=== PATIENT | male | born 1935 | race Caucasian/White ===

== ENCOUNTER 2017-10-08 08:19 | Day surgery (SDC) | payer MEDICARE, BC ==
[~2017-10-08] VITALS: Ht 180.3 cm; Wt 91.6 kg
--- NOTE | ~2017-10-08 | OP ---
PATIENT NAME: AALIYAH HUERTA MEDICAL RECORD: [id number] :33 LOCATION:[facility] ADMISSION DATE: SURGEON: ERWIN ARGUETA MD DATE OF OPERATION: 10/08/2017 PREOPERATIVE DIAGNOSIS: Extensive perianal warts. PROCEDURE: Fulguration of perianal warts. SURGEON: Erwin Argueta MD OVERHAULER HELPER: None. BLOOD LOSS: Minimal. ANESTHESIA: General. COMPLICATIONS: None. The risks, possible complications, and alternatives to procedure were explained to the patient. He elects to proceed. OPERATIVE COURSE: The patient was conveyed to the operating room electively on 10/08/2017. General anesthesia was induced by the anesthesia staff. The patient was placed in the lithotomy position. A suction device was used as I fulgurated the perianal warts with the electrocautery. The U-shaped anal retractors were placed within the anus. I examined the anus very carefully. I noted no verrucous growths within the anus or the lower rectum. I continued to fulgurate and then wiped away the verrucous growths around the anus. A portion of the largest one was sent to pathology. Once I had fulgurated all of the warts, I injected the perianal tissues with a combination of steroid preparation and Marcaine. Gelfoam was applied within the anus and lower rectum. A topical anesthetic cream was applied to the perianal skin. The patient was then extubated and conveyed to post-anesthesia care unit. He will be dismissed home on [place] as well as [place]. I will see him in the office in 2-3 weeks. TRANSINT:[id number] Voice Confirmation ID: [id number] DOCUMENT ID: [id number] ERWIN ARGUETA MD at 1507 CC: [id number] DICTATION DATE: 10/08/17 1314 GRANT WRITER: 10/08/17 1529 [facility] 10/08/17 [place] [id number]
[2017-10-08 09:13] LABS: BASOPHILS 0.2 % (0-2); EOSINOPHILS 3.8 % (0-7); HEMATOCRIT 44.1 % (42.0-54.0); HEMOGLOBIN 15.2 g/dL (13.5-17.5); IMMATURE GRANULOCYTES 0.2 % (0-5); LYMPHOCYTES 27.4 % (15-50); MCH 33.1 pg (26.0-34.0); MCHC 34.5 g/dL (31.0-37.0); MCV 96.1 fL (80.0-100.0); MEAN PLATELET VOLUME 8.8 fL (7.4-10.4); MONOCYTES 8.4 % (2-11); PLATELET COUNT 202 10x3/uL (130-400); RBC 4.59 10x6/uL (4.20-6.10); RDW 13.2 % (11.5-14.5); WBC 5.8 10x3/uL (4.8-10.8)
[2017-10-08 09:21] LABS: CALC OSMOLALITY 280 mosm/kg (275-300); CALCIUM 8.7 mg/dL (8.5-10.1); CARBON DIOXIDE 26.1 mmol/L (21.0-32.0); CHLORIDE - SERUM 106 mmol/L (98-107); CREATININE - SERUM 0.9 mg/dL (0.6-1.3); GLUCOSE 104 mg/dL (74-106); POTASSIUM - SERUM 4.1 mmol/L (3.5-5.1); SODIUM 141 mmol/L (136-145); UREA NITROGEN 12 mg/dL (7-18); eGFR NON AFRICAN AMERICAN 86 mL/min (90-120)
[2017-10-08 10:12] VITALS: BP 152/86; Ht 180.3 cm; Wt 91.6 kg
== END 2017-10-08 14:30 | disposition home or self-care (01) ==
LOC: D.OPS 08:19 → D.PAN 14:05 → D.OPS 14:30 → D.PAN 10-10 08:00 → D.OPS 10-10 08:00
PROVIDERS: Anesthesiology
DX: A63.0 Anogenital (venereal) warts (principal); Z01.812 Encounter for preprocedural laboratory examination

== ENCOUNTER 2018-06-29 15:06 | Inpatient (IN) | payer MEDICARE, BC ==
[~2018-06-29] VITALS: Ht 180.3 cm; Wt 91.8 kg
[2018-06-29 16:00] VITALS: BP 133/80
[2018-06-29 16:47] LABS: BASOPHILS 0.7 % (0-2); EOSINOPHILS 8.4 % (0-7); HEMATOCRIT 38.8 % (42.0-54.0); HEMOGLOBIN 13.2 g/dL (13.5-17.5); IMMATURE GRANULOCYTES 0.4 % (0-5); LYMPHOCYTES 27.5 % (15-50); MCH 32.6 pg (26.0-34.0); MCV 95.8 fL (80.0-100.0); MEAN PLATELET VOLUME 8.5 fL (7.4-10.4); MONOCYTES 8.5 % (2-11); NEUTROPHILS 54.5 % (40-80); PLATELET COUNT 214 10x3/uL (130-400); RBC 4.05 10x6/uL (4.20-6.10); WBC 7.2 10x3/uL (4.8-10.8)
[2018-06-29 17:00] LABS: INR 1.13 (0.85-1.17)
[2018-06-29 17:03] VITALS: Ht 180.3 cm; Wt 91.8 kg
[2018-06-29 17:04] LABS: ALBUMIN 3.2 g/dL (3.4-5.0); ANION GAP 14.5 mmol/L (8-16); BILIRUBIN - TOTAL 0.71 mg/dL (0.2-1.3); CALCIUM 7.9 mg/dL (8.5-10.1); CARBON DIOXIDE 24.7 mmol/L (21.0-32.0); CREATININE - SERUM 1.2 mg/dL (0.6-1.3); POTASSIUM - SERUM 4.2 mmol/L (3.5-5.1); PROTEIN - SERUM 7.2 g/dL (6.4-8.2)
[2018-06-29 17:09] LABS: D-DIMER-QUANTITATIVE 8.62 ug/mLFEU (0.20-0.54)
[2018-06-29 21:03] VITALS: BP 145/79
[2018-06-30 00:01] VITALS: BP 148/88
[2018-06-30 04:50] VITALS: BP 133/78
--- NOTE | 2018-06-30 07:15 | NUR ---
MORNING ASSESSMENT COMPLETE. PT LYING IN BED AAO X4 TO PERSON, PLACE, TIME AND SITUATION. FRIEND AT BEDSIDE. RUL PE NOTED. R GROIN AREA DVT. ON 100MG LOVENOX BID. DENIES FURTHER NEEDS AT THIS TIME. CL IN REACH
[2018-06-30 08:00] VITALS: BP 106/80
--- NOTE | 2018-06-30 08:07 | NUR ---
D Dimer elavated at 8.[address] ANGIOGRAM per orders resited a new IV by staff. Dr. Guzman in this shift to check on pt. ask about lovonox order for 1mg per kg pt. wt . 99.9 bstated to give 100mg. given per order. result of CT ANGIOGRAM in with right upper lob P.E. called to Dr. Guzman at 0116, with no new orders given. results on chart. resting with no s/s of distress call light in reach.
[2018-06-30 12:30] VITALS: BP 140/73
[2018-06-30 16:00] VITALS: BP 148/83
[2018-06-30 21:26] VITALS: BP 139/85
[2018-07-01 06:13] VITALS: BP 150/85
[2018-07-01 09:13] VITALS: BP 138/87
--- NOTE | 2018-07-01 09:40 | NUR ---
ASSESSMENT COMPLETE, VS STABLE. NO COMPLAINTS OR SIGNS OF DISTRESS. CALL LIGHT WITHIN REACH.
--- NOTE | 2018-07-01 12:15 | NUR ---
PATIENT SITTING UP EATING AT THIS TIME WITH NO COMPLAINTS OR SIGNS OF DISTRESS. IV INTACT. CALL LIGHT WITHIN REACH.
--- NOTE | 2018-07-01 15:00 | NUR ---
PATIENT IN BED WITH NO COMPLAINTS AT THIS TIME. IV INTACT X 2 CALL LIGHT WITHIN REACH.
[2018-07-01 15:16] VITALS: BP 145/56
--- NOTE | 2018-07-01 16:48 | NUR ---
PATIENT IN BED WITH NO COMPLAINTS OR SIGNS OF DISTRESS. IV INTACT X 2. SALINE LOCKED. CALL LIGHT WITHIN REACH.
--- NOTE | 2018-07-01 17:36 | HP ---
PATIENT: AALIYAH HUERTA MEDICAL RECORD: [id number] ACCOUNT: [id number] LOCATION:[facility] [place] : 33 ADMISSION DATE: 06/29/18 PCP: ELLEN GALLEGOS MD HISTORY AND PHYSICAL EXAMINATION DATE OF ADMISSION: 06/29/2018 CHIEF COMPLAINT: Pain and swelling in the right lower extremity. HISTORY: This is an 82-year-old male, who presented to my office today with pain and swelling to the right lower extremity for several days. He denies any trauma. No shortness of breath. He has not had any major surgeries recently. He does not smoke. He has no personal history or family history of blood clots. He was sent over to [facility] for an outpatient Venous Doppler ultrasound of the right lower extremity and I received a phone call from the radiologist stating that he has extensive blood clot and blood clot started at the superficial vein down through the popliteal vein. I spoke to the patient on the phone and as he was still in the hospital, I had him sent down to admissions to be admitted for right lower extremity DVT. PAST MEDICAL AND SURGICAL HISTORY: He has had some arthritis and has had a partial knee replacement. HOME MEDICATIONS: He takes no regular medicines. DRUG ALLERGIES: None. HABITS: He never smoked. He denies any alcohol or drug use. SOCIAL HISTORY: He is a retired teacher and personal coach. He is . FAMILY HISTORY: Father at 90 of old age. Mother at 28 due to tuberculosis. REVIEW OF SYSTEMS: GENERAL: No major weight changes. HEENT: No particular sinus or allergy problems. RESPIRATORY: No history of emphysema or asthma. He denies any cough or hemoptysis. CARDIAC: No history of heart trouble. GASTROINTESTINAL: No significant heartburn. No diarrhea or constipation. GENITOURINARY: No significant problems there. MUSCULOSKELETAL: Has few joint aches and pains. He has had a partial knee replacement. NEUROLOGIC: No migraines or seizures. PSYCHIATRIC: Denies depression or melancholia. PHYSICAL EXAMINATION: VITAL SIGNS: Temperature 98.6, pulse 78, respirations 16, blood pressure 133/80. GENERAL: He does not appear to be in acute distress. He is awake and alert. HEENT: Grossly within normal limits. NECK: Supple. No JVD or bruit. HEART: Regular rate and rhythm without murmur. LUNGS: Clear. HISTORY AND PHYSICAL [id number] AALIYAH HUERTA ABDOMEN: Soft, flat, nontender. EXTREMITIES: The left lower extremity has no edema. Right lower extremity has generalized swelling from around the knee down to the ankle. Homans' sign is negative. He feels most tenderness behind the knee. LABORATORY DATA: CBC with a white count of 7200, hemoglobin 13.2, platelets number 214,000. Basic metabolic panel is normal. INR 1.13. D-dimer 8.62. Liver functions are okay. ASSESSMENT: Right lower extremity DVT. PLAN: We will admit. Start Lovenox. We will get CT angiogram of the chest with PE protocol. We will workup for hypercoagulable state. Other tests or procedures as warranted. TRANSINT:[id number] Voice Confirmation ID: [id number] DOCUMENT ID: [id number] ELLEN GALLEGOS MD at 1736 CC: [id number] DICTATION DATE: 06/30/18917 ELECTRONIC MAINTENANCE SUPERVISOR: 06/30/18 0941 ADM IN [facility] [address] [id number]
[2018-07-01 17:52] VITALS: BP 131/85
--- NOTE | 2018-07-01 18:40 | NUR ---
PATIENT STATED PHYSICIAN SAYS GOING TO DC IN AM. NO COMPLAINTS OR SIGNS OF DISTRESS. IV X 2 INTACT. CALL LIGHT WITHIN REACH.
--- NOTE | 2018-07-01 20:00 | NUR ---
ALERT RESTING IN BED REPORTS GOING HOME IN AM, DENIES PAIN CALL LIGHT IN REACH NO NEEDS VOICED AT THIS TIME
[2018-07-01] MEDS ORDERED: ELIQUIS5 MG PO (21:43)
[2018-07-01 22:19] VITALS: BP 139/81
[2018-07-02 08:44] VITALS: BP 135/85
--- NOTE | 2018-07-02 09:20 | MORECARE ---
CASE MANAGEMENT DISCHARGE SUMMARY PATIENT: AALIYAH HUERTA UNIT: [id number] ADM DATE: 06/29/18 AGE: 82 : 34 SEX: M ROOM/BED: D.2204 AUTHOR: ANABEL,DOC PHYSICIAN: REFERRING PHYSICIAN: ELLEN GALLEGOS MD DATE OF SERVICE: 07/02/18 Discharge Plan Patient Name: AALIYAH HUERTA Facility: [facility]:[place] : 1935 Planned Disposition: Home Anticipated Discharge Date: Discharge Date: Expected LOS: Initial Reviewer: [email or web address] Initial Review Date: 06/29/2018 Generated: 07/02/18 10:20 am Comments DCP- Discharge Planning Updated by [email or web address]: Marisabel Rico on 07/02/18 8:[address] Patient Name: AALIYAH HUERTA Admission Status: Elective Accout number: [id number] Admission Date: 06-29-2018 : 1935 Admission Diagnosis:OTHER SPECIFIED SOFT TISSUE DISORDERS Attending: ELLEN GALLEGOS Current LOS: 3 Anticipated DC Date: Planned Disposition: Home Primary Insurance: MEDICARE A & B Discharge Planning Comments: CM MET WITH PATIENT TO ASSESS DISCHARGE PLANNING NEEDS. PATIENT LIVES INDEPENDENTLY AT HOME WHERE HE PLANS TO RETURN. HE DOES NOT USE ANY DME, STATES HIS HOME IS SAFE AND HIS FRIEND GORAN WILL BE HIS VISUAL BASIC PROGRAMMER HOME. HE DENIES ANY NEEDS. AT THIS TIME. IMM EXPLAINED AND SIGNED AND PLACED IN CHART. CM WILL CONTINUE TO FOLLOW AND ASSIST NEEDED White Hat Hacker: Marisabel Rico DCPIA - Discharge Planning Initial Assessment Updated by [email or web address]: Marisabel Rico on 07/02/18 9:16 am * Is the patient Alert and Oriented? Yes * How many steps to enter\exit or inside your home? * PCP ROSY * [facility]acy [facility] * Preadmission Environment Home Alone * ADLs Independent * Equipment None * List name and contact numbers for known caregivers / representatives who currently or will assist patient after discharge: GORAN JILL * Verbal permission to speak to the caregivers and representatives has been obtained from the patient. Yes * Community resources currently utilized None * Additional services required to return to the preadmission environment? No * Can the patient safely return to the preadmission environment? Yes * Has this patient been hospitalized within the prior 30 days at any hospital? No Coverage Notice Reviewer: [id number] Candida Rico Notice Issued Date-Time: 07/02/2018 9:00 Notice Type: IM Discharge Notice Notice Delivered To: Patient Relationship to Patient: Billet Heater Name: Delivery Method: HAND - Hand Delivered Dottie Days: Prior Verbal Notification: Recipient Understood Notice: Yes Recipient Signature: Yes Med Rec Note Co-signed by Attending: Coverage Notice Comment: Patient Name: AALIYAH HUERTA Page [phone] at 0920 All edits/amendments must be made on the electronic document DICTATION DATE: 07/02/18918 CANE STRIPPER: RICHARD 07/02/18918 RPT#: [id number] DC DATE: STATUS: ADM IN [facility] [address] [place] [address] END OF REPORT
--- NOTE | 2018-07-02 10:43 | NUR ---
IV IN RIGHT AND LEFT FOREARMS REMOVED WITH TIP INTACT. DISCHARGE INSTRUCTIONS GIVEN AND VERBALIZED UNDERSTANDING. GETTING READY TO LEAVE
--- NOTE | 2018-07-03 16:55 | MORECARE ---
CASE MANAGEMENT DISCHARGE SUMMARY PATIENT: AALIYAH HUERTA UNIT: [id number] ADM DATE: 06/29/18 AGE: 82 : 34 SEX: M ROOM/BED: D.2204 AUTHOR: ANABELDOC PHYSICIAN: REFERRING PHYSICIAN: ELLEN GALLEGOS MD DATE OF SERVICE: 07/03/18 Discharge Plan Patient Name: AALIYAH HUERTA Facility: [facility]:[place] : 1935 Planned Disposition: Home Anticipated Discharge Date: Discharge Date: 07/02/2018 Expected LOS: 0 Initial Reviewer: [email or web address] Initial Review Date: 06/29/2018 Generated: 07/03/18 5:55 pm Comments DCP- Discharge Planning Updated by [email or web address]: Marisabel Rico on 07/02/18 8:[address] Patient Name: AALIYAH HUERTA Admission Status: Elective Accout number: [id number] Admission Date: 06-29-2018 : 1935 Admission Diagnosis:OTHER SPECIFIED SOFT TISSUE DISORDERS Attending: ELLEN GALLEGOS Current LOS: 3 Anticipated DC Date: Planned Disposition: Home Primary Insurance: MEDICARE A & B Discharge Planning Comments: CM MET WITH PATIENT TO ASSESS DISCHARGE PLANNING NEEDS. PATIENT LIVES INDEPENDENTLY AT HOME WHERE HE PLANS TO RETURN. HE DOES NOT USE ANY DME, STATES HIS HOME IS SAFE AND HIS FRIEND GORAN WILL BE HIS METAL TECHNICIAN HOME. HE DENIES ANY NEEDS. AT THIS TIME. IMM EXPLAINED AND SIGNED AND PLACED IN CHART. CM WILL CONTINUE TO FOLLOW AND ASSIST NEEDED Ross Furnace Operator: Marisabel Rico DCPIA - Discharge Planning Initial Assessment Updated by [email or web address]: Marisabel Rico on 07/02/18 9:16 am * Is the patient Alert and Oriented? Yes * How many steps to enter\exit or inside your home? * PCP ROSY * [facility] * Preadmission Environment Home Alone * ADLs Independent * Equipment None * List name and contact numbers for known caregivers / representatives who currently or will assist patient after discharge: GORAN JILL * Verbal permission to speak to the caregivers and representatives has been obtained from the patient. Yes * Community resources currently utilized None * Additional services required to return to the preadmission environment? No * Can the patient safely return to the preadmission environment? Yes * Has this patient been hospitalized within the prior 30 days at any hospital? No Coverage Notice Reviewer: [id number] Candida Rico Notice Issued Date-Time: 07/02/2018 9:00 Notice Type: IM Discharge Notice Notice Delivered To: Patient Relationship to Patient: Marine Oiler Name: Delivery Method: HAND - Hand Delivered Dottie Days: Prior Verbal Notification: Recipient Understood Notice: Yes Recipient Signature: Yes Med Rec Note Co-signed by Attending: Coverage Notice Comment: Last DP export: 07/02/18 8:20 am Patient Name: AALIYAH HUERTA Page [id number] at 1655 All edits/amendments must be made on the electronic document DICTATION DATE: 07/03/181654 SOFTWARE BUILD ENGINEER: RICHARD 07/03/181654 RPT#: [id number] DC DATE:07/02/18 STATUS: DIS IN [facility] [address] [place] [address] END OF REPORT
== END 2018-07-02 10:49 | disposition home or self-care (01) | DRG 299 ==
LOC: D.US 15:06 → D.MS 15:58 → D.US 16:30 → D.MS 07-02 10:49
PROVIDERS: ADMIT Family Medicine
DX: I82.401 Acute embolism and thrombosis of unspecified deep veins of right lower extremity (principal); I26.99 Other pulmonary embolism without acute cor pulmonale; I71.2 Thoracic aortic aneurysm, without rupture

== ENCOUNTER → 2018-12-28 06:13 | Outpatient (CLI) | payer MEDICARE, BC ==
[2018-06-29 17:03] VITALS: BMI 28.2
[~2018-12-28 06:13] MED LIST: ELIQUIS5 MG PO
== END | disposition home or self-care (01) ==
LOC: D.US 06:13
PROVIDERS: ATTEND Family Medicine
DX: Z86.718 Personal history of other venous thrombosis and embolism (principal)

== ENCOUNTER → 2019-11-22 08:31 | Outpatient (CLI) | payer MEDICARE, BC ==
[2018-06-29 17:03] VITALS: BMI 28.2
== END | disposition home or self-care (01) ==
LOC: D.US 08:30
PROVIDERS: ATTEND Family Medicine
DX: I82.401 Acute embolism and thrombosis of unspecified deep veins of right lower extremity (principal)

== ENCOUNTER → 2019-12-15 11:38 | Outpatient (CLI) | payer MEDICARE, BC ==
[2018-06-29 17:03] VITALS: BMI 28.2
[2019-12-15 12:34] LABS: BASOPHILS 0.6 % (0-2); EOSINOPHILS 5.3 % (0-7); HEMATOCRIT 37.2 % (42.0-54.0); HEMOGLOBIN 12.9 g/dL (13.5-17.5); IMMATURE GRANULOCYTES 0.8 % (0-5); LYMPHOCYTES 29.1 % (15-50); MCH 35.3 pg (26.0-34.0); MCHC 34.7 g/dL (31.0-37.0); MCV 101.9 fL (80.0-100.0); MEAN PLATELET VOLUME 8.3 fL (7.4-10.4); MONOCYTES 14.6 % (2-11); NEUTROPHILS 49.6 % (40-80); RBC 3.65 10x6/uL (4.20-6.10); RDW 14.3 % (11.5-14.5); WBC 3.6 10x3/uL (4.8-10.8)
[2019-12-15 12:38] LABS: PLATELET COUNT 155 10x3/uL (130-400)
[2019-12-15 12:58] LABS: APTT 24.9 SECONDS (22.8-39.4); INR 1.22 (0.85-1.17); PROTIME 15.3 SECONDS (11.6-15.0)
[2019-12-15 13:40] LABS: ALBUMIN 3.1 g/dL (3.4-5.0); ALKALINE PHOSPHATASE 94 U/L (30-120); ALT (SGPT) 60 U/L (10-68); BILIRUBIN - TOTAL 1.01 mg/dL (0.2-1.3); CALC OSMOLALITY 278 mosm/kg (275-300); CALCIUM 8.4 mg/dL (8.5-10.1); CARBON DIOXIDE 24.6 mmol/L (21.0-32.0); CHLORIDE - SERUM 106 mmol/L (98-107); CREATININE - SERUM 0.9 mg/dL (0.6-1.3); POTASSIUM - SERUM 4.4 mmol/L (3.5-5.1); PROTEIN - SERUM 7.1 g/dL (6.4-8.2); SODIUM 139 mmol/L (136-145); UREA NITROGEN 14 mg/dL (7-18); eGFR NON AFRICAN AMERICAN 85 mL/min (90-120)
[2019-12-15 13:42] LABS: GLUCOSE 99 mg/dL (74-106)
== END | disposition home or self-care (01) ==
LOC: D.LAB 11:38
PROVIDERS: ATTEND Internal Medicine Hematology & Oncology
DX: Z79.899 Other long term (current) drug therapy (principal); I82.401 Acute embolism and thrombosis of unspecified deep veins of right lower extremity